=== PATIENT | male | born 1970 | race Caucasian/White ===

== ENCOUNTER → 2019-06-05 08:42 | Outpatient (CLI) | payer OTHER, SELFPAY ==
--- NOTE | 2019-06-05 | DI.NM.S_ITS ---
PROCEDURE: NM BONE 3 PHASE RADIOPHARMACEUTICAL: 19.8 mCi Tc-99m MDP IV. INDICATIONS: NECK PAIN TECHNIQUE: Multiple bone scintigrams were obtained after intravenous injection of Tc-99m MDP, including flow, blood pool, and delayed images centered to the region of interest. COMPARISON: [facility] Outside [facility], MR, MR CERVICAL SPINE WITHOUT CONTRAST, 04/25/2015, 10:17. [facility], CR, XR CERVICAL SPINE 2 OR 3 VIEWS, 04/17/2019, 10:27. [facility], CR, XR CERVICAL SPINE 2 OR 3 VIEWS, 05/15/2019, 13:38. FINDINGS: Flow and blood pool images demonstrate normal vascular activity in neck and upper thorax. Delayed images demonstrate low-level increased uptake in the lower cervical spine, correlating with radiographic findings of degenerative and postsurgical change. There are foci of increased periarticular activity in shoulders bilaterally and the sternoclavicular joints bilaterally consistent with degenerative joint disease. IMPRESSION: 1. Low-level delayed uptake in cervical spine is most likely secondary to degenerative and postsurgical change as seen on the comparison x-ray. There are no scintigraphic findings to suggest prosthesis infection. 2. 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 Dictated by: Rainer Evans M.D. on 06/05/2019 at 15:27 Approved by: Rainer Evans M.D. on 06/05/2019 at 15:31
== END ==
PROVIDERS: Visit Provider Orthopaedic Surgery
DX: M54.2 Cervicalgia (principal); M47.812 Spondylosis without myelopathy or radiculopathy, cervical region; M19.011 Primary osteoarthritis, right shoulder; M19.012 Primary osteoarthritis, left shoulder
CPT/HCPCS: 78315; A9503